=== PATIENT | female | born 1960 | race Two or more races ===

== ENCOUNTER 2023-10-07 21:57 | Emergency (ER) | payer MEDICAID, OTHER ==
[2023-10-08] MEDS ORDERED: ACE3T PO (01:41)
[2023-10-08] MEDS ORDERED: DexAMETHasone SOD PHOS 10MG/1ML VIAL INJ IM ONE (01:45)
[2023-10-08] MEDS ORDERED: KETOROLAC TROMETH 60MG/2ML VIAL IM ONE (01:45)
[2023-10-08 04:10] VITALS: BP 120/68; PULSE 79; RESP 18; TEMP 98; O2SAT 96
== END 2023-10-08 03:41 | disposition home or self-care (01) ==
LOC: ER 21:57
DX: S63.501A Unspecified sprain of right wrist, initial encounter (principal); E11.9 Type 2 diabetes mellitus without complications; E78.5 Hyperlipidemia, unspecified; I10 Essential (primary) hypertension; X50.0XXA Overexertion from strenuous movement or load, initial encounter; Y93.89 Activity, other specified; Y92.89 Other specified places as the place of occurrence of the external cause; Y99.8 Other external cause status
CPT/HCPCS: 29125; 73110; 96372; 99284; J1100; J1885